=== PATIENT | male | born 1940 | race Caucasian/White ===

== ENCOUNTER 2019-03-25 14:01 | Emergency (ER) | payer MEDICARE, BC ==
[~2019-03-25] VITALS: Ht 180.3 cm; Wt 96.2 kg
[2019-03-25] MEDS ORDERED: CYCLOBENZAPRINE5 M3 PO (15:51)
[2019-03-25] MEDS ORDERED: MEDROL DOSEPAK4 MG PO (15:51)
== END 2019-03-25 16:05 | disposition home or self-care (01) ==
LOC: ED 14:01
DX: M47.892 Other spondylosis, cervical region (principal); M25.511 Pain in right shoulder; Z88.6 Allergy status to analgesic agent; X58.XXXA Exposure to other specified factors, initial encounter; Y93.89 Activity, other specified; Y92.89 Other specified places as the place of occurrence of the external cause; Y99.8 Other external cause status

== ENCOUNTER → 2020-07-14 | Outpatient (CLI) | payer MEDICARE, BC ==
[~2020-07-14] MED LIST: CYCLOBENZAPRINE5 M3 PO; MEDROL DOSEPAK4 MG PO
== END | disposition home or self-care (01) ==
LOC: COVID19 11:16
PROVIDERS: ATTEND Internal Medicine Gastroenterology
DX: Z01.812 Encounter for preprocedural laboratory examination (principal); Z20.822 Contact with and (suspected) exposure to COVID-19

== ENCOUNTER → 2022-03-15 | Outpatient (CLI) | payer MEDICARE, BC | END | disposition home or self-care (01) | LOC: RAD 15:28 | PROVIDERS: ATTEND Chiropractor | DX: M47.816 Spondylosis without myelopathy or radiculopathy, lumbar region (principal); M25.752 Osteophyte, left hip; M48.07 Spinal stenosis, lumbosacral region; M25.78 Osteophyte, vertebrae ==